=== PATIENT | female | born 1955 | race Caucasian/White ===

== ENCOUNTER 2019-04-24 08:39 | Day surgery (SDC) | payer BC ==
[~2019-04-24] VITALS: Ht 160 cm; Wt 62.0 kg
[~2019-04-24 08:39] MED LIST: Coq-10100 MG PO; DHEA 10 MG TAB1 EACH PO; ESTROGEN-METHY1 EAC1 VAG; Fish Oil 10001000 MG PO; HYDACE5; LETR2.5; LEVFLO250 PO; LEVSOD50 PO; ONDA8 PO; PHENA200 PO; [UNRECOGNIZED DRUG - CODE]
== END 2019-04-24 11:06 | disposition home or self-care (01) ==
LOC: ORSCSDS 08:39
PROVIDERS: Surgery
PROC: 0DJD8ZZ Inspection of Lower Intestinal Tract, Via Natural or Artificial Opening Endoscopic (ICD-10-PCS; principal; 2019-04-24 09:45)
DX: Z12.11 Encounter for screening for malignant neoplasm of colon (principal); Z86.010 Personal history of colon polyps; K57.30 Diverticulosis of large intestine without perforation or abscess without bleeding; E03.9 Hypothyroidism, unspecified; K21.9 Gastro-esophageal reflux disease without esophagitis; Z79.899 Other long term (current) drug therapy
CPT/HCPCS: J2704; J7120

== ENCOUNTER → 2019-09-18 | Outpatient (CLI) | payer BC | END | disposition home or self-care (01) | LOC: LAB 16:50 → LAB SHORT 16:50 | DX: N39.0 Urinary tract infection, site not specified (principal) | CPT/HCPCS: 87086 ==

== ENCOUNTER → 2019-11-05 | Outpatient (CLI) | payer BC | END | disposition home or self-care (01) | LOC: LAB 16:14 → LAB SHORT 16:14 | DX: N39.0 Urinary tract infection, site not specified (principal) | CPT/HCPCS: 87086 ==

== ENCOUNTER → 2020-02-09 | Outpatient (CLI) | payer BC | LOC: LAB SHORT 17:20 → LAB 17:20 | DX: N39.0 Urinary tract infection, site not specified (principal) | CPT/HCPCS: 87086 ==

== ENCOUNTER → 2020-02-22 | Outpatient (CLI) | payer BC ==
[2020-02-22 17:45] LABS: BASOPHILS ABSOLUTE AUTO 0.02 K/mm3 (0.00-0.23); BASOPHILS PERCENT AUTO 0 % (0-2); EOSINOPHILS ABSOLUTE AUTO 0.07 K/mm3 (0.00-0.68); EOSINOPHILS PERCENT AUTO 1 % (0-6); Hematocrit 42.7 % (33.0-51.0); Hemoglobin 14.4 g/dL (11.5-16.0); IMMATURE GRAN ABSOLUTE AUTO 0.02 K/mm3 (0.00-0.10); IMMATURE GRAN PERCENT AUTO 0 % (0-1); LYMPHOCYTES ABSOLUTE AUTO 1.74 K/mm3 (0.84-5.20); LYMPHOCYTES PERCENT AUTO 36 % (21-46); MONOCYTES ABSOLUTE AUTO 0.34 K/mm3 (0.16-1.47); MONOCYTES PERCENT AUTO 7 % (4-13); Mean Corpuscular HGB Conc 33.7 g/dL (31.5-36.5); Mean Corpuscular Volume 92 fL (80-100); Mean Platelet Volume 9.1 fL (9.1-12.4); NEUTROPHILS ABSOLUTE AUTO 2.66 K/mm3 (1.96-9.15); NEUTROPHILS PERCENT AUTO 55 % (41-73); Platelet Count 320 K/mm3 (150-400); RDW Coefficient Variation 12.1 % (11.7-14.2); RDW Standard Deviation 41.1 fL (35.1-46.3); Red Blood Cell Count 4.64 M/mm3 (3.80-5.20); White Blood Cell Count 4.85 K/mm3 (4.00-11.30)
[2020-02-22 17:57] LABS: Alanine Aminotransfer (ALT/SGP 28 U/L (12-78); Albumin/Globulin Ratio 1.2 (0.8-1.8); Alk Phos 86 U/L (50-136); Anion Gap 5 mmol/L (6-16); Aspartate Aminotrans (AST/SGOT 24 U/L (12-37); Bilirubin, Total 0.4 mg/dL (0.1-1.0); Blood Urea Nitrogen 13 mg/dL (8-24); Bun/Creatinine Ratio 16.5 (12.0-20.0); CO2, Blood 27 mmol/L (21-32); Calcium, Blood 9.2 mg/dL (8.5-10.1); Chloride, Blood 109 mmol/L (98-108); Creatinine, Blood 0.79 mg/dL (0.40-1.00); Globulin, Blood 3.2 g/dL (2.2-4.0); Glomerular Filtration Rate >60 (60-); Glucose, Blood 98 mg/dL (70-99); Potassium, Blood 3.9 mmol/L (3.5-5.5); Sodium, Blood 141 mmol/L (136-145); Total Protein, Blood 7.2 g/dL (6.4-8.2)
== END ==
LOC: LAB SHORT 17:20 → LAB 17:20
PROVIDERS: Physician Assistant
DX: R10.84 Generalized abdominal pain (principal)
CPT/HCPCS: 80053; 83690; 85025

== ENCOUNTER → 2020-12-07 | Outpatient (CLI) | payer BC | END | disposition home or self-care (01) | LOC: LAB 16:30 | DX: R10.2 Pelvic and perineal pain (principal); R19.7 Diarrhea, unspecified | CPT/HCPCS: 87015; 87045; 87046; 87205; 87899 ==

== ENCOUNTER 2021-02-24 16:12 | Emergency (ER) | payer BC ==
[~2021-02-24] VITALS: Ht 160 cm; Wt 62.1 kg
== END 2021-02-24 17:37 | disposition left against medical advice (07) ==
LOC: ER 16:12
DX: R19.7 Diarrhea, unspecified (principal); Z79.899 Other long term (current) drug therapy; Z53.21 Procedure and treatment not carried out due to patient leaving prior to being seen by health care provider
CPT/HCPCS: 99283

== ENCOUNTER 2022-02-08 09:51 | Day surgery (SDC) | payer BC ==
[~2022-02-08] VITALS: Ht 160 cm; Wt 62.0 kg
[~2022-02-08 09:51] MED LIST changes: +Aspir 8181 MG PO; +LIVALO2 MG PO; +VITAMIN D5000 UNIT PO
--- NOTE | 2022-02-08 14:36 | NUR ---
PT RETURNED TO RECOVERY ROOM IN BED. RIGHT RADIAL TR BAND SITE WITH WRIST BOARD SOFT NON-TENDER WITH NO HEMATOMA, NO PULSATILE BLEEDING. PT EATING LUNCH AND CALL LIGHT IN REACH.
[2022-02-08] MEDS ORDERED: CLOP75 PO (15:36)
--- NOTE | 2022-02-08 15:57 | NUR ---
1510 BEGAN TAKING AIR FROM THE TR BAND. NO BLEEDING NOTED. DR. HATFIELD AT [facility] BEDSIDE TO CHECK ON THE PAITENT. WILL ADD PLAVIX TO MEDICAITON REGIME. SCRIPT WRITTEN. ADDED TO PATIETN MED RECONCILIATION. REVIEWED CARE FOR RIGHT RADIAL CARE WITH THE PAITENT AND .
--- NOTE | 2022-02-08 15:59 | NUR ---
1600 TR BAND FLAT. PATIENT UP AND DRESSED. TO THE RESTROOM. ALL BELONGINGS GATHERED. PIV REMOVED AND CATHETER TIP INTACT, PRESSURE DRESSING APPLIED.
--- NOTE | 2022-02-08 16:15 | NUR ---
TR BAND REMOVED AND SITE CLEANED CLOTH DOT PLACED. WHITE BOARD REPLACED TO THE RIGHT WRIST. REVIEWED ALL DISCHARGE INSTRUCTIONS. PLAVIX SCRIPT GIVEN TO THE PATIENT AND SHE WILL RESUME HER ASPIRIN FOR DUAL ANTIPLATLET THERAPY FOR HER STENT. PATIENT VERBALIZES UNDERSTANDING. PATIENT TO WHEELCHAIR FOR DISCHARGE HOME WITH .
== END 2022-02-08 16:20 | disposition home or self-care (01) ==
LOC: MHTC 09:51
DX: I77.1 Stricture of artery (principal); E78.5 Hyperlipidemia, unspecified; Z88.2 Allergy status to sulfonamides; Z87.891 Personal history of nicotine dependence
CPT/HCPCS: 76937; 99152; 99153; C1769; C1876; C1887; C1894; J1644; J2250; J3010; J7030; J7050; Q9967

== ENCOUNTER → 2022-07-10 | Outpatient (CLI) | payer SELFPAY ==
[~2022-07-10] MED LIST changes: +CLOP75 PO
== END ==
LOC: LAB SHORT 13:48
DX: R30.0 Dysuria (principal)
CPT/HCPCS: 87086; 87147

== ENCOUNTER → 2022-08-29 | Outpatient (CLI) | payer BC | END | disposition home or self-care (01) | LOC: LAB 14:40 → LAB SHORT 14:40 | DX: R82.90 Unspecified abnormal findings in urine (principal) | CPT/HCPCS: 87086 ==

== ENCOUNTER → 2022-09-14 | Outpatient (CLI) | payer BC ==
[2022-09-14 11:18] LABS: BASOPHILS ABSOLUTE AUTO 0.05 K/mm3 (0.00-0.23); BASOPHILS PERCENT AUTO 0 % (0-2); EOSINOPHILS ABSOLUTE AUTO 0.03 K/mm3 (0.00-0.68); EOSINOPHILS PERCENT AUTO 0 % (0-6); Hemoglobin 15.8 g/dL (11.5-16.0); IMMATURE GRAN ABSOLUTE AUTO 0.04 K/mm3 (0.00-0.10); IMMATURE GRAN PERCENT AUTO 0 % (0-1); LYMPHOCYTES ABSOLUTE AUTO 0.64 K/mm3 (0.84-5.20); LYMPHOCYTES PERCENT AUTO 5 % (21-46); MONOCYTES PERCENT AUTO 3 % (4-13); Mean Corpuscular HGB 31.1 pg (26.0-34.0); Mean Corpuscular HGB Conc 33.6 g/dL (31.5-36.5); Mean Corpuscular Volume 93 fL (80-100); Mean Platelet Volume 8.8 fL (9.1-12.4); NEUTROPHILS ABSOLUTE AUTO 12.09 K/mm3 (1.96-9.15); NEUTROPHILS PERCENT AUTO 91 % (41-73); Platelet Count 333 K/mm3 (150-400); RDW Coefficient Variation 12.5 % (11.7-14.2); RDW Standard Deviation 42.9 fL (35.1-46.3); Red Blood Cell Count 5.08 M/mm3 (3.80-5.20); White Blood Cell Count 13.25 K/mm3 (4.00-11.30)
[2022-09-14 11:34] LABS: Albumin, Blood 4.1 g/dL (3.4-5.0); Albumin/Globulin Ratio 1.2 (0.8-1.8); Bilirubin, Total 0.6 mg/dL (0.1-1.0); Bun/Creatinine Ratio 20.2 (12.0-20.0); Creatinine, Blood 0.94 mg/dL (0.40-1.00); Globulin, Blood 3.4 g/dL (2.2-4.0); Potassium, Blood 4.2 mmol/L (3.5-5.5); Total Protein, Blood 7.5 g/dL (6.4-8.2)
== END | disposition home or self-care (01) ==
LOC: LAB 11:12 → LAB SHORT 11:12
PROVIDERS: Chiropractor
DX: E86.0 Dehydration (principal); N20.0 Calculus of kidney
CPT/HCPCS: 80053; 83690; 85025; 87086

== ENCOUNTER → 2022-11-20 | Outpatient (CLI) | payer BC ==
[2022-11-20 14:02] LABS: Adenovirus F 40/41 Not Detected (NOT DETECT); Astrovirus Not Detected (NOT DETECT); Campylobacter Sp Not Detected (NOT DETECT); Cryptosporidium Not Detected (NOT DETECT); Cyclospora Cayetanensis Not Detected (NOT DETECT); E. Coli O157 Not Detected (NOT DETECT); Entamoeba Histolytica Not Detected (NOT DETECT); Enteroaggregative E. coli-EAEC Not Detected (NOT DETECT); Enteropathogenic E. coli-EPEC Not Detected (NOT DETECT); Enterotoxigenic E. coli-ETEC Not Detected (NOT DETECT); Giardia Lamblia Not Detected (NOT DETECT); Norovirus GI/GII Not Detected (NOT DETECT); Plesiomonas Shigelloides Not Detected (NOT DETECT); Rotavirus A Not Detected (NOT DETECT); Salmonella Sp Not Detected (NOT DETECT); Sapovirus Not Detected (NOT DETECT); Shiga Toxin-prod E. coli-STEC Not Detected (NOT DETECT); Shigella/Enteroin E. coli-EIEC Not Detected (NOT DETECT); Vibrio Cholerae Not Detected (NOT DETECT); Vibrio Sp Not Detected (NOT DETECT); Yersinia Enterocolitica Not Detected (NOT DETECT)
== END ==
LOC: LAB SHORT 09:02 → LAB 09:02
PROVIDERS: Nurse Practitioner Acute Care
DX: N39.0 Urinary tract infection, site not specified (principal); K57.92 Diverticulitis of intestine, part unspecified, without perforation or abscess without bleeding
CPT/HCPCS: 87324; 87507

== ENCOUNTER 2023-03-21 19:14 | Emergency (ER) | payer BC ==
[~2023-03-21] VITALS: Ht 160 cm; Wt 60.8 kg
[2023-03-21 19:50] LABS: BASOPHILS ABSOLUTE AUTO 0.02 K/mm3 (0.00-0.23); BASOPHILS PERCENT AUTO 0 % (0-2); EOSINOPHILS PERCENT AUTO 2 % (0-6); Hematocrit 40.4 % (33.0-51.0); Hemoglobin 13.8 g/dL (11.5-16.0); IMMATURE GRAN ABSOLUTE AUTO 0.03 K/mm3 (0.00-0.10); IMMATURE GRAN PERCENT AUTO 0 % (0-1); LYMPHOCYTES PERCENT AUTO 25 % (21-46); MONOCYTES ABSOLUTE AUTO 0.73 K/mm3 (0.16-1.47); MONOCYTES PERCENT AUTO 7 % (4-13); Mean Corpuscular HGB 31.1 pg (26.0-34.0); Mean Corpuscular HGB Conc 34.2 g/dL (31.5-36.5); Mean Corpuscular Volume 91 fL (80-100); Mean Platelet Volume 9.1 fL (9.1-12.4); NEUTROPHILS ABSOLUTE AUTO 6.54 K/mm3 (1.96-9.15); NEUTROPHILS PERCENT AUTO 65 % (41-73); Platelet Count 349 K/mm3 (150-400); RDW Coefficient Variation 12.3 % (11.7-14.2); Red Blood Cell Count 4.44 M/mm3 (3.80-5.20); White Blood Cell Count 10.02 K/mm3 (4.00-11.30)
[2023-03-21] MEDS ORDERED: AMOX-CLAV 875-1 EAC5 (19:51)
[2023-03-21] MEDS ORDERED: EUTHYROX25 MC1 PO (19:51)
[2023-03-21] MEDS ORDERED: METO50ER PO (19:52)
[2023-03-21 20:11] LABS: Albumin, Blood 3.6 g/dL (3.4-5.0); Albumin/Globulin Ratio 1.1 (0.8-1.8); Bilirubin, Total 0.2 mg/dL (0.1-1.0); Bun/Creatinine Ratio 19.9 (12.0-20.0); Calcium, Blood 9.2 mg/dL (8.5-10.1); Creatinine, Blood 0.96 mg/dL (0.40-1.00); Globulin, Blood 3.3 g/dL (2.2-4.0); Total Protein, Blood 6.9 g/dL (6.4-8.2)
[2023-03-21 20:42] LABS: Source, Urine Clean Catch
[2023-03-21 20:45] LABS: Appearance, Urine Clear (Clear); Bilirubin, Urine Neg (Neg); Blood, Urine Neg (Neg); Glucose Qualitative, Urine Neg (Neg); Ketones, Urine Neg (Neg); Leukocyte Esterase, Urine Neg (Neg); Nitrite, Urine Neg (Neg); Protein, Urine Neg (Neg); Urobilinogen, Urine NORM (Normal)
[2023-03-21 20:53] LABS: Color, Urine Pale Yellow (P-Yellow)
[2023-03-21 22:00] VITALS: BP 114/80
[2023-03-21] MEDS ORDERED: MINERAL OIL133 M1 PR (22:02)
== END 2023-03-21 22:16 | disposition home or self-care (01) ==
LOC: ER 19:14
PROVIDERS: Physician Assistant
DX: K57.32 Diverticulitis of large intestine without perforation or abscess without bleeding (principal); K59.00 Constipation, unspecified; Z88.2 Allergy status to sulfonamides; Z79.899 Other long term (current) drug therapy; Z79.82 Long term (current) use of aspirin; Z87.891 Personal history of nicotine dependence
CPT/HCPCS: 74177; 80053; 81003; 85025; A9270; J2270; Q9967

== ENCOUNTER 2023-07-11 02:39 | Day surgery (SDC) | payer BC ==
--- NOTE | 2023-07-06 08:47 | NUR ---
PT RESCHEDULED HER APPOINTMENT. SHE CAME TO APPOINTMENT FOR ACTH STIM TEST BUT HAD EATEN BREAKFAST. EDUCATION GIVEN ON TESTING.
[~2023-07-11 02:39] MED LIST changes: +AMOX-CLAV 875-1 EAC5; +EUTHYROX25 MC1 PO; +METO50ER PO; +MINERAL OIL133 M1 PR
[2023-07-11 07:40] VITALS: BP 127/73
[2023-07-11] MEDS ORDERED: ATENOLOL25 MG PO (08:00)
== END 2023-07-11 08:56 | disposition home or self-care (01) ==
LOC: ATC 02:39
DX: R42 Dizziness and giddiness (principal); E78.5 Hyperlipidemia, unspecified; E03.9 Hypothyroidism, unspecified; Z88.2 Allergy status to sulfonamides
CPT/HCPCS: 80400; 82533; 96374; J0834

== ENCOUNTER 2023-12-20 07:50 | Day surgery (SDC) | payer BC ==
[2023-12-20] VITALS (15 sets, daily range): BP systolic 90–123; BP diastolic 59–78
[~2023-12-20] VITALS: Ht 160 cm; Wt 61.4 kg
[~2023-12-20 07:50] MED LIST changes: +ALBU90OI INH; +ALPHA LIPOIC; +ATENOLOL25 MG PO; +FISH OIL 1,0001 EA10 PO; +Lactated Ringer's 1,000 ML IV SCH; +MULVITA PO
[2023-12-20] MEDS ORDERED: Ketorolac Tromethamine 30mg Vial ONE (08:34)
[2023-12-20] MEDS ORDERED: FentaNYL Citrate 50 MCG/ML 5 ML Injection ONE (08:34)
[2023-12-20] MEDS ORDERED: Ondansetron HCl 2 MG / ML 2ML Vial ONE (08:34)
[2023-12-20] MEDS ORDERED: propofoL 20 ML IV ONE (08:34)
[2023-12-20] MEDS ORDERED: Dexamethasone Sod Phos 10 MG/ML 1ML VIAL ONE (08:34)
[2023-12-20] MEDS ORDERED: Midazolam HCl 1MG / ML 2ML Vial IV ONE (09:20)
[2023-12-20] MEDS ORDERED: Bupivacaine 0.5% HCl 5 MG/ML 30MLVIAL ONE (09:22)
[2023-12-20] MEDS ORDERED: EpiNEPhrine 1 MG/1 ML 1ML Vial ONE (09:22)
[2023-12-20] MEDS ORDERED: Glycopyrrolate 0.2 MG/ML 5ML VIAL ONE (10:06)
[2023-12-20] MEDS ORDERED: FentaNYL Citrate 50 MCG/ML 2 ML Injection ONE (10:28)
[2023-12-20] MEDS ORDERED: Lactated Ringer's 1,000 ML IV SCH (10:30)
[2023-12-20] MEDS ORDERED: Ondansetron HCl 2 MG / ML 2ML Vial IV PRN (10:30)
[2023-12-20] MEDS ORDERED: Simethicone 80 MG Chew PO PRN (10:30)
[2023-12-20] MEDS ORDERED: FentaNYL Citrate 50 MCG/ML 2 ML Injection IV PRN (10:35)
[2023-12-20] MEDS ORDERED: HYDROcodone 10-APAP 325 TAB PO PRN (10:35)
[2023-12-20] MEDS ORDERED: DiphenhydrAMINE HCL 25 MG Cap PO PRN (10:35)
[2023-12-20] MEDS ORDERED: FLU VACC QS2023-24(6MOS UP)/PF 60 MCG/0.5 ML SYRINGE IM SCH (10:35)
[2023-12-20] MEDS ORDERED: Acetaminophen 325 MG TABLET PO PRN (10:35)
[2023-12-20] MEDS ORDERED: HYDROmorphone HCl/Pf 1MG SYR ONE (10:46)
[2023-12-20 14:34] LABS: BASOPHILS ABSOLUTE AUTO 0.01 K/mm3 (0.00-0.23); BASOPHILS PERCENT AUTO 0 % (0-2); EOSINOPHILS PERCENT AUTO 0 % (0-6); Hematocrit 41.7 % (33.0-51.0); Hemoglobin 13.6 g/dL (11.5-16.0); IMMATURE GRAN ABSOLUTE AUTO 0.03 K/mm3 (0.00-0.10); IMMATURE GRAN PERCENT AUTO 0 % (0-1); LYMPHOCYTES ABSOLUTE AUTO 0.62 K/mm3 (0.84-5.20); LYMPHOCYTES PERCENT AUTO 9 % (21-46); MONOCYTES ABSOLUTE AUTO 0.09 K/mm3 (0.16-1.47); MONOCYTES PERCENT AUTO 1 % (4-13); Mean Corpuscular HGB 30.7 pg (26.0-34.0); Mean Corpuscular HGB Conc 32.6 g/dL (31.5-36.5); Mean Corpuscular Volume 94 fL (80-100); Mean Platelet Volume 8.9 fL (9.1-12.4); NEUTROPHILS ABSOLUTE AUTO 6.47 K/mm3 (1.96-9.15); NEUTROPHILS PERCENT AUTO 90 % (41-73); Platelet Count 329 K/mm3 (150-400); RDW Coefficient Variation 12.2 % (11.7-14.2); RDW Standard Deviation 42.6 fL (35.1-46.3); Red Blood Cell Count 4.43 M/mm3 (3.80-5.20); White Blood Cell Count 7.22 K/mm3 (4.00-11.30)
--- NOTE | 2023-12-20 19:26 | NUR ---
SHIFT SUMMARY POD0 ANTERIOR REPAIR, A/OX4, VSS, TOELRATING PO, UNABLE TO VOID POST OP WITH BLADDER SCAN SHOWING > 774 ML, STRAIGHT CATH INSERTED USING A MCQUEEN ON GOT 1100 OUT, CALLED PROVIDER WHO GAVE ORDER TO LEAVE IT IN AN INDWELLING FOR TONIGHT AND KEEP HER TONIGHT. PAIN MANAGED PER EMAR. NO OTHER EVENTS THIS SHIFT, CALL LIGHT IN REACH.
[2023-12-20] MEDS ORDERED: DOCU100 PO (19:47)
[2023-12-20] MEDS ORDERED: Docusate Sodium 100 MG Cap PO SCH (21:00)
[2023-12-20] MEDS ORDERED: Estradiol Vag Cream 0.1 MG/G 42.5 GM Tube VAG ONE (21:00)
[2023-12-21 03:36] VITALS: BP 130/73
--- NOTE | 2023-12-21 05:37 | NUR ---
SHIFT SUMMARY POD 1 ANTERIOR REPAIR. VS WNL FOR PT. TOLERATING ORALS. AMBULATES INDEPENDENTLY. MCQUEEN IN PLACE, DRAINING YELLOW URINE TO GRAVITY. PT REPORTS PAIN R/T "BLADDER AREA" AND DESCRIBES PAIN "BURNING/PRESSURE/LIKE I NEED TO PEE & HAVE A UTI." VAGINAL PACKING IN PLACE, ANTICIPATED REMOVAL THIS AM. MEDICATED PER EMAR, PT REPORTED PAIN EFFECTIVENESS DECREASING T/O NIGHT. BIOX IN USE, O2 SAT >92% ON RA. NO BM THIS SHIFT. CALL LIGHT WITHIN REACH, BED IN LOWEST POSITION, WILL REPORT TO DAY RN.
[2023-12-21 07:49] VITALS: BP 102/70
[2023-12-21] MEDS ORDERED: Norco 5-325 Ta1 EACH PO (09:42)
[2023-12-21] MEDS ORDERED: MOTRIN IB200 MG PO (09:42)
--- NOTE | 2023-12-21 11:56 | NUR ---
DISCHARGE NOTE: PATIENT WAS EDUCATED ON DISCHARGE INSTRUCTIONS. SHE VERBALIZED UNDERSTANDING OF INSTRUCTIONS AND HAD NO FRUTHER QUESTIONS AT THIS TIME. PAIN IS MANAGED WITH ORAL PAIN MEDS. HER LYDIA PAD HAS SCANT AMOUNT OF BLOOD. SHE IS VOIDING AND TOLERATING PO INTAKE. SHE DENIES NAUSEA OR VOMITING THROUGHOUT SHIFT. SHE IS DRESSED AND HAS PERSONAL ITEMS IN THE ROOM GATHERED. PATIENT WAS WHEELCHAIRED OUT TO HER HUSBANDS CAR TO BE TAKEN HOME.
== END 2023-12-21 11:58 | disposition home or self-care (01) ==
LOC: ORSCMMR 07:50 → ORD 09:00 → ORSCMMR 09:00 → SURS 11:25 → ORSCMMR 12-21 11:58 → SURS 12-21 11:58
PROVIDERS: Obstetrics & Gynecology
PROC: 0JQC0ZZ Repair Pelvic Region Subcutaneous Tissue and Fascia, Open Approach (ICD-10-PCS; principal; 2023-12-21)
DX: N81.11 Cystocele, midline (principal); Z85.3 Personal history of malignant neoplasm of breast; K21.9 Gastro-esophageal reflux disease without esophagitis; E03.9 Hypothyroidism, unspecified; Z79.899 Other long term (current) drug therapy
CPT/HCPCS: 36415; 85025; 94762; A9270; J0171; J1100; J1170; J1885; J2250; J2405; J2704; J3010; J7120